=== PATIENT | female | born 1980 | race Caucasian/White ===

== ENCOUNTER 2016-03-26 18:58 | Emergency (ER) | payer OTHER ==
[~2016-03-26] VITALS: Ht 180.3 cm; Wt 101.5 kg
[~2016-03-26 18:58] MED LIST: CALC500C70 PO; CLC150 PO; DIAZ-165 PO; EFAV600T PO; LRT5 PO; PROM12.57 PO; [UNRECOGNIZED DRUG - OTHER] PO
[2016-03-26 19:03] VITALS: TEMP 36.4
[2016-03-26] MEDS ORDERED: PRENTAB26 PO (19:24)
[2016-03-26] MEDS ORDERED: LBT100 PO (19:24)
[2016-03-26] MEDS ORDERED: CHOL1000 PO (19:24)
--- NOTE | 2016-03-26 19:30 | EMERGENCY ROOM VISIT NOTE ---
History Report prepared by Twin: Balbir Rousseau Under the Supervision of: Dr. Gideon Moffett D.O. First contact with patient: 19:08 Chief Complaint: PELVIC PAIN Stated Complaint: ABD PAIN,BLEEDING History of Present Illness The patient is a 35 year old female who presents to the Emergency Room with complaints of worsening pelvic pain beginning several hours prior to arrival. She currently rates her discomfort as a 10/10 in severity. The patient associates vaginal bleeding, abdominal cramping, and nausea with today's symptoms. She states she took Cytotec on , four days ago, to induce a miscarriage due to the fetus not growing. She notes she began cramping and bleeding with clots for nine hours on . The patient states the following two days over the weekend was similar to a normal period. She notes this morning she woke up with cramping and took Motrin. The patient states she is currently passing clots of size of her fist every fifteen minutes. She notes this was her first , and her blood type is O+. Pt denies LOC, headache , fevers, chills, diaphoresis, visual changes, neck pain, chest pain, breathing difficulties, vomiting, back pain, melena, hematochezia, urinary symptoms, numbness, weakness, lymphadenopathy, rash, or other complaints. 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 Review of Systems See HPI for pertinent positives and negatives. A total of ten systems were reviewed and were otherwise negative. Past Medical & Surgical Medical Problems: (1) Miscarriage Family History Patient reports no known family medical history. Social History Smoking Status: Never Smoker Alcohol Use: none Marital Status: Occupation Status: employed Current/Historical Medications Scheduled Cholecalciferol (Vitamin D3), 1,000 INTER.UNIT PO DAILY Labetalol HCl (Labetalol HCl), 100 MG PO BID Multivit/Min/Iron/Fol Ac/Pren ( Vitamin), 1 TAB PO DAILY Allergies Coded Allergies: Shellfish (Unverified Allergy, Mild, RASH, 03/26/16) Sulfa Drugs (Verified Allergy, Mild, 03/26/16) Physical Exam Vital Signs Date Time Temp Pulse Resp B/P Pulse Ox O2 Delivery O2 Flow Rate FiO2 03/26/16 21:27 70 18 117/75 100 Room Air 03/26/16 20:09 72 03/26/16 19:54 100 Room Air 03/26/16 19:03 36.4 116 18 166/97 99 Room Air Physical Exam GENERAL: Awake, alert, uncomfortable-appearing. HENT: Normocephalic, atraumatic. Oropharynx unremarkable. EYES: Normal conjunctiva. Sclera non-icteric. NECK: Supple. No nuchal rigidity. FROM. No JVD. RESPIRATORY: Clear to auscultation. CARDIAC: Regular rate, normal rhythm. Extremities warm and well perfused. Pulses equal. ABDOMEN: Soft, non-distended. No tenderness to palpation. No rebound or guarding. No masses. RECTAL: Deferred. MUSCULOSKELETAL: Chest examination reveals no tenderness. The back is symmetrical on inspection without obvious abnormality. There is no CVA tenderness to palpation. No joint edema. LOWER EXTREMITIES: Calves are equal size bilaterally and non-tender. No edema. No discoloration. NEURO: Normal sensorium. No sensory or motor deficits noted. SKIN: No rash or jaundice noted. 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 19 mm thickness endometrium. No intrauterine gestational sac. The endometrial stripe measured 19 mm. The right ovary measured 3.4 cm maximum dimension. Normal vascular flow. 1.3 cm corpus luteum cyst. The left ovary measured not well seen. There is no ultrasonographic evidence of ovarian torsion. It should be noted that ovarian torsion can be present with normal Doppler ultrasonographic findings. There was no evidence of pathologic free pelvic fluid. IMPRESSION: 1. Prominent endometrium at 19 mm. 2. No evidence for an intrauterine gestational sac. 3. Small right ovarian cyst Electronically signed by: Rasheed Jackson M.D. 03/26/2016 9:05 PM Laboratory Results 03/26/16 19:44 Red Blood Count 3.86, Mean Corpuscular Volume 85.2, Mean Corpuscular Hemoglobin 30.1, Mean Corpuscular Hemoglobin Concent 35.3, Mean Platelet Volume 11.0, Neutrophils (%) (Auto) 67.2, Lymphocytes (%) (Auto) 22.4, Monocytes (%) (Auto) 8.3, Eosinophils (%) (Auto) 1.7, Basophils (%) (Auto) 0.2, Neutrophils # (Auto) 4.06, Lymphocytes # (Auto) 1.35, Monocytes # (Auto) 0.50, Eosinophils # (Auto) 0.10, Basophils # (Auto) 0.01 03/26/16 19:44 Test 03/26/16 19:44 White Blood Count 6.03 K/uL (4.8-10.8) Red Blood Count 3.86 M/uL (4.2-5.4) Hemoglobin 11.6 g/dL (12.0-16.0) Hematocrit 32.9 % (37-47) Mean Corpuscular Volume 85.2 fL (80-100) Mean Corpuscular Hemoglobin 30.1 pg (25-34) Mean Corpuscular Hemoglobin Concent 35.3 g/dl (32-36) Platelet Count 165 K/uL (130-400) Mean Platelet Volume 11.0 fL (7.4-10.4) Neutrophils (%) (Auto) 67.2 % Lymphocytes (%) (Auto) 22.4 % Monocytes (%) (Auto) 8.3 % Eosinophils (%) (Auto) 1.7 % Basophils (%) (Auto) 0.2 % Neutrophils # (Auto) 4.06 K/uL (1.4-6.5) Lymphocytes # (Auto) 1.35 K/uL (1.2-3.4) Monocytes # (Auto) 0.50 K/uL (0.11-0.59) Eosinophils # (Auto) 0.10 K/uL (0-0.5) Basophils # (Auto) 0.01 K/uL (0-0.2) RDW Standard Deviation 39.7 fL (36.4-46.3) RDW Coefficient of Variation 12.8 % (11.5-14.5) Immature Granulocyte % (Auto) 0.2 % Immature Granulocyte # (Auto) 0.01 K/uL (0.00-0.02) Prothrombin Time 10.2 SECONDS (9.0-12.0) Prothromb Time International Ratio 1.0 (0.9-1.1) Activated Partial Thromboplast Time 27.9 SECONDS (21.0-31.0) Partial Thromboplastin Ratio 1.1 Anion Gap 8.0 mmol/L (3-11) Est Creatinine Clear Calc Drug Dose 137.8 ml/min Estimated GFR () 120.8 Estimated GFR (Non- 104.2 BUN/Creatinine Ratio 23.7 (10-20) Calcium Level 8.9 mg/dl (8.5-10.1) Total Bilirubin 0.2 mg/dl (0.2-1) Aspartate Amino Transf (AST/SGOT) 15 U/L (15-37) Alanine Aminotransferase (ALT/SGPT) 23 U/L (12-78) Alkaline Phosphatase 68 U/L (45-117) Total Protein 7.0 gm/dl (6.4-8.2) Albumin 3.9 gm/dl (3.4-5.0) Globulin 3.1 gm/dl (2.5-4.0) Albumin/Globulin Ratio 1.3 (0.9-2) Human Chorionic Gonadotropin, Quant 5336 mIU/mL Laboratory results reviewed by me Medications Administered Medications (Trade) Dose Ordered Sig/Cristina Route Start Time Stop Time Status Last Admin Dose Admin Ondansetron HCl 4 mg 4 mg NOW STAT IV 03/26/16 19:32 03/26/16 19:35 DC 03/26/16 19:49 4 MG Sodium Chloride (Nss 1000ml) 1,000 ml @ 999 mls/hr Q1H1M STAT IV 03/26/16 19:32 03/26/16 20:32 DC 03/26/16 19:49 999 MLS/HR Morphine Sulfate (MoRPHine SULFATE INJ) 8 mg Q1H PRN IV 03/26/16 19:45 04/09/16 19:44 03/26/16 19:50 8 MG Ondansetron HCl (ZOFRAN ODT 4MG Home Pack) 1 homepack UD ONCE PO 03/26/16 21:45 03/26/16 21:46 DC 03/26/16 21:45 1 HOMEPACK Acetaminophen/ Hydrocodone Bitart ([place] 5/325mg Home Pack) 1 homepack UD ONCE PO 03/26/16 21:45 03/26/16 21:46 DC 03/26/16 21:45 1 HOMEPACK ED Course 191: The patient was evaluated in room B7. A complete history and physical exam was performed. 1931: Ordered Sodium Chloride 1,000 ml @ 999 mls/hr IV, Zofran Inj 4 mg IV. 1944: Ordered Morphine Sulfate 8 mg IV. 2144: Ordered Acetaminophen/Hydrocodone Bitart 1 homepack PO, Ondansetron HCl 1 homepack PO. 2149: Reevaluated the patient at this time, and she is pain free and very comfortable. Discussed results and discharge instructions: She verbalized understanding and agreement. The patient is ready for discharge. Medical Decision Differential diagnosis: Etiologies such as ectopic , dysfunction uterine bleeding, bleeding dyscrasia, trauma, infection, as well as others were entertained. 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 The day following Cytotec she experienced cramping and bleeding she has had mild bleeding ever since. Today however she had severe abdominal pain and passing multiple clots in the increased bleeding. Just prior to my entry into the room she states that she passed a blood clot was probably some tissue. Her pain is very severe suprapubically. On exam she had severe tenderness suprapubically. Suprapubic massage has decreased pain. Labs fluid and ultrasound were ordered. Ultrasound was negative for retained tissue. Labs were stable. Hemoglobin 11,000. On reevaluation she was pain-free very comfortable and happy feels like she is doing much better and would like to go home. Under my care she remained comfortable and happy. The patient's presentation and history is c/w the impression provided. A partial list of DDx that has been considered is listed above. By the evaluation outlined above other emergent etiologies such as those listed in the differential, as well as others, were deemed relatively unlikely. The patient has been informed about today's findings. All questions were answered to satisfaction and understanding. They are pleased with the care provided. Patient education and return instructions were discussed as per my usual and the patient was discharged in stable condition as agreed upon by the patient. The patient was referred for close follow-up and informed that they will need to call to schedule appointment during the next business hours. The chart was completed utilizing a [employer] and [employer] Speech voice recognition software. Utilizing these services results in errors at time as they are imperfect. Grammatical errors, random word insertions, pronoun errors, and incomplete sentences are an occasional consequence of this system due to software limitations, ambient noise, and hardware issues. Any formal questions or concerns about the content, text, or information contained within the body of this dictation should be directly addressed to the physician for clarification. Impression Primary Impression: Vagina bleeding Additional Impressions: Miscarriage, Hemorrhage affecting in first trimester Scribe Attestation The scribe's documentation has been prepared under my direction and personally reviewed by me in its entirety. I confirm that the note above accurately reflects all work, treatment, procedures, and medical decision making performed by me. Departure Information Dispostion Home / Self-Care Referrals Humberto Chao MD (PCP) Forms HOME CARE DOCUMENTATION FORM, IMPORTANT VISIT INFORMATION, WORK / SCHOOL INSTRUCTIONS Patient Instructions A Signature Page, ED Miscarriage Completed Additional Instructions Today's Beta hCG was 5336 Follow-up with your car and yard supervisor tomorrow. Return to the emergency department if needed for severe pain or continued bleeding. Treatment plenty of fluid intake and multivitamin with iron as daily.
[2016-03-26] MEDS ORDERED: SODIUM CHLORIDE 0.9% 1000ML 1,000 ML IV STA (19:32)
[2016-03-26] MEDS ORDERED: ONDANSETRON INJ 2 MG/ML 2 ML VIAL IV STA (19:32)
[2016-03-26] MEDS ORDERED: MoRPHine SULFATE 10 MG/ML CARP/VIAL IV PRN (19:45)
[2016-03-26 19:54] VITALS: O2SAT 100; Ht 180.3 cm; Wt 101.5 kg
[2016-03-26 19:54] LABS: BASO % 0.2 %; BASO ABS # 0.01 K/uL (0-0.2); COMPLETE YES; EOS % 1.7 %; HEMATOCRIT 32.9 % (37-47); IG% 0.2 %; LYMPH % 22.4 %; LYMPH ABS # 1.35 K/uL (1.2-3.4); MEAN CELL VOLUME 85.2 fL (80-100); MEAN CORPUSCULAR HEMOGLOBIN 30.1 pg (25-34); MEAN CORPUSCULAR HGB CONC 35.3 g/dl (32-36); MONO % 8.3 %; NEUT % 67.2 %; PLATELET COUNT 165 K/uL (130-400); RED BLOOD COUNT 3.86 M/uL (4.2-5.4); WHITE BLOOD COUNT 6.03 K/uL (4.8-10.8)
[2016-03-26 20:04] LABS: PARTIAL THROMBOPLASTIN RATIO 1.1; PROTHROMBIN TIME (PATIENT) 10.2 SECONDS (9.0-12.0)
[2016-03-26 20:14] LABS: BUN/CREATININE RATIO 23.7 (10-20); CALCIUM 8.9 mg/dl (8.5-10.1); CREATININE 0.74 mg/dl (0.60-1.20); POTASSIUM 3.6 mmol/L (3.5-5.1)
[2016-03-26 20:17] LABS: ALB/GLOB RATIO 1.3 (0.9-2)
--- NOTE | 2016-03-26 21:07 | DIAGNOSTIC IMAGING REPORT ---
EXAMINATION: PELVIC ULTRASOUND CLINICAL HISTORY: EVALUATE OB-CARVER HAND/VAGINAL BLEEDING BLEEDING COMPARISON STUDY: None FINDINGS: The uterus measured 9 cm maximum dimension. 19 mm thickness endometrium. No intrauterine gestational sac. The endometrial stripe measured 19 mm. The right ovary measured 3.4 cm maximum dimension. Normal vascular flow. 1.3 cm corpus luteum cyst. The left ovary measured not well seen. There is no ultrasonographic evidence of ovarian torsion. It should be noted that ovarian torsion can be present with normal Doppler ultrasonographic findings. There was no evidence of pathologic free pelvic fluid. IMPRESSION: 1. Prominent endometrium at 19 mm. 2. No evidence for an intrauterine gestational sac. 3. Small right ovarian cyst Electronically signed by: Rasheed Jackson M.D. 03/26/2016 9:05 PM
[2016-03-26 21:27] VITALS: BP 117/75; PULSE 70; O2SAT 100
[2016-03-26] MEDS ORDERED: NORCO 5/325MG HOME PACK PO ONE (21:45)
[2016-03-26] MEDS ORDERED: ONDANSETRON HOME PACK 4MG OD TAB PO ONE (21:45)
== END 2016-03-26 21:58 | disposition home or self-care (01) ==
LOC: C.EDB 18:59
DX: O26.851 Spotting complicating pregnancy, first trimester (principal); O26.891 Other specified pregnancy related conditions, first trimester; N93.9 Abnormal uterine and vaginal bleeding, unspecified; O03.9 Complete or unspecified spontaneous abortion without complication; O98.711 Human immunodeficiency virus [HIV] disease complicating pregnancy, first trimester; Z21 Asymptomatic human immunodeficiency virus [HIV] infection status; Z3A.00 Weeks of gestation of pregnancy not specified

== ENCOUNTER → 2016-04-02 | Outpatient (CLI) | payer OTHER ==
[~2016-04-02] MED LIST changes: -CALC500C70 PO; +CHOL1000 PO; -CLC150 PO; -DIAZ-165 PO; -EFAV600T PO; +LBT100 PO; -LRT5 PO; +PRENTAB26 PO; -PROM12.57 PO; -[UNRECOGNIZED DRUG - OTHER] PO
== END | disposition home or self-care (01) ==
LOC: C.LAB 11:20
PROVIDERS: ATTEND Obstetrics & Gynecology
DX: O02.1 Missed abortion (principal)

== ENCOUNTER → 2016-09-07 | Outpatient (CLI) | payer OTHER | END | disposition home or self-care (01) | LOC: C.LAB 12:38 | PROVIDERS: ATTEND Internal Medicine | DX: R63.5 Abnormal weight gain (principal); I10 Essential (primary) hypertension ==

== ENCOUNTER → 2017-04-04 | Outpatient (CLI) | payer OTHER | END | disposition home or self-care (01) | LOC: C.LAB1850 15:43 | PROVIDERS: ATTEND Obstetrics & Gynecology | DX: O09.512 Supervision of elderly primigravida, second trimester (principal); Z3A.00 Weeks of gestation of pregnancy not specified ==

== ENCOUNTER → 2017-04-18 | Outpatient (CLI) | payer OTHER ==
[2017-04-18 16:35] LABS: BASO % 0.2 %; BASO ABS # 0.01 K/uL (0-0.2); EOS % 1.5 %; EOS ABS # 0.09 K/uL (0-0.5); HEMATOCRIT 33.4 % (37-47); HEMOGLOBIN 11.3 g/dL (12.0-16.0); IG# 0.03 K/uL (0.00-0.02); LYMPH % 23.8 %; LYMPH ABS # 1.39 K/uL (1.2-3.4); MEAN CELL VOLUME 87.2 fL (80-100); MEAN CORPUSCULAR HEMOGLOBIN 29.5 pg (25-34); MEAN CORPUSCULAR HGB CONC 33.8 g/dl (32-36); MEAN PLATELET VOLUME 11.3 fL (7.4-10.4); MONO % 10.1 %; MONO ABS # 0.59 K/uL (0.11-0.59); NEUT % 63.9 %; NEUT ABS # 3.73 K/uL (1.4-6.5); PLATELET COUNT 184 K/uL (130-400); RED CELL DISTRIBUTION WIDTH CV 13.7 % (11.5-14.5); RED CELL DISTRIBUTION WIDTH SD 43.7 fL (36.4-46.3); WHITE BLOOD COUNT 5.84 K/uL (4.8-10.8)
[2017-04-18 17:03] LABS: ALBUMIN 3.3 gm/dl (3.4-5.0); ALT/SGPT 40 U/L (12-78); BLOOD UREA NITROGEN 12 mg/dl (7-18); CALCIUM 9.1 mg/dl (8.5-10.1); CARBON DIOXIDE 26 mmol/L (21-32); CREATININE 0.54 mg/dl (0.60-1.20); GLUCOSE 82 mg/dl (70-99); POTASSIUM 3.7 mmol/L (3.5-5.1); SODIUM 136 mmol/L (136-145)
[2017-04-18 17:14] LABS: ALKALINE PHOSPHATASE 79 U/L (45-117); AST/SGOT 23 U/L (15-37)
== END | disposition home or self-care (01) ==
LOC: C.LAB 15:36
PROVIDERS: ATTEND Internal Medicine
DX: H53.8 Other visual disturbances (principal); I10 Essential (primary) hypertension

== ENCOUNTER → 2017-04-19 | Outpatient (CLI) | payer OTHER ==
--- NOTE | 2017-04-19 15:59 | DIAGNOSTIC IMAGING REPORT ---
ULTRASOUND OF THE THYROID GLAND CLINICAL HISTORY: Hypothyroidism. COMPARISON STUDY: No priors. TECHNIQUE: Real-time, grayscale, and color flow sonography of the thyroid gland is performed utilizing a high-frequency linear transducer. Images are reviewed in the transverse and longitudinal planes. FINDINGS: Right lobe: The right lobe of the thyroid gland is normal in size and heterogeneous in echotexture, measuring 5.8 x 1.5 x 1.8 cm. The right lobe is hyperemic on color imaging. Left lobe: The left lobe of the thyroid gland is normal in size and homogeneous in echotexture, measuring 4.6 x 1.5 x 1.5 cm. The left lobe is hyperemic on color imaging. Isthmus: The thyroid isthmus is normal in appearance and measures 0.3 cm in AP diameter. IMPRESSION: 1. The thyroid gland is normal in size and heterogeneous in echotexture. The thyroid gland is hyperemic on color imaging, and the appearance suggests thyroiditis. Correlation with clinical findings and serum thyroid function studies will be required. 2. No discrete thyroid lesion is seen. Electronically signed by: Stuart Navarro M.D. 04/19/2017 3:58 PM Dictated Date/Time: 04/19/2017 3:57 PM
[2017-04-22 12:57] LABS: MICROSOMAL AB 578 IU/ML (<9)
== END | disposition home or self-care (01) ==
LOC: C.LAB 15:04
PROVIDERS: ATTEND Internal Medicine
DX: E03.9 Hypothyroidism, unspecified (principal); E04.9 Nontoxic goiter, unspecified

== ENCOUNTER → 2017-05-17 | Outpatient (CLI) | payer OTHER ==
[2017-05-17 15:37] LABS: BASO % 0.2 %; BASO ABS # 0.01 K/uL (0-0.2); EOS % 0.9 %; EOS ABS # 0.05 K/uL (0-0.5); HEMATOCRIT 32.5 % (37-47); HEMOGLOBIN 11.2 g/dL (12.0-16.0); IG# 0.01 K/uL (0.00-0.02); LYMPH % 24.1 %; LYMPH ABS # 1.32 K/uL (1.2-3.4); MEAN CELL VOLUME 87.6 fL (80-100); MEAN CORPUSCULAR HEMOGLOBIN 30.2 pg (25-34); MEAN CORPUSCULAR HGB CONC 34.5 g/dl (32-36); MONO ABS # 0.49 K/uL (0.11-0.59); NEUT % 65.6 %; NEUT ABS # 3.59 K/uL (1.4-6.5); PLATELET COUNT 191 K/uL (130-400); RED CELL DISTRIBUTION WIDTH CV 13.9 % (11.5-14.5); RED CELL DISTRIBUTION WIDTH SD 44.7 fL (36.4-46.3); WHITE BLOOD COUNT 5.47 K/uL (4.8-10.8)
== END | disposition home or self-care (01) ==
LOC: C.LAB 14:31
PROVIDERS: ATTEND Internal Medicine Endocrinology, Diabetes & Metabolism
DX: D64.9 Anemia, unspecified (principal); E03.9 Hypothyroidism, unspecified; E04.9 Nontoxic goiter, unspecified; O99.282 Endocrine, nutritional and metabolic diseases complicating pregnancy, second trimester

== ENCOUNTER → 2017-06-17 | Outpatient (CLI) | payer OTHER | END | disposition home or self-care (01) | LOC: C.LAB 11:28 | PROVIDERS: ATTEND Internal Medicine Endocrinology, Diabetes & Metabolism | DX: O10.019 Pre-existing essential hypertension complicating pregnancy, unspecified trimester (principal); E03.9 Hypothyroidism, unspecified ==

== ENCOUNTER → 2017-06-24 | Outpatient (CLI) | payer OTHER ==
[2017-06-24 17:38] LABS: HEMATOCRIT 31.9 % (37-47); HEMOGLOBIN 10.9 g/dL (12.0-16.0)
== END | disposition home or self-care (01) ==
LOC: C.LAB1850 16:38
PROVIDERS: ATTEND Obstetrics & Gynecology
DX: O09.513 Supervision of elderly primigravida, third trimester (principal)

== ENCOUNTER → 2017-07-15 | Outpatient (CLI) | payer OTHER | END | disposition home or self-care (01) | LOC: C.LAB 11:54 | PROVIDERS: ATTEND Internal Medicine Endocrinology, Diabetes & Metabolism | DX: E03.9 Hypothyroidism, unspecified (principal) ==

== ENCOUNTER → 2017-10-24 | Outpatient (CLI) | payer OTHER ==
[~2017-10-24] MED LIST changes: +LEVO150T PO
== END | disposition home or self-care (01) ==
LOC: C.PAPS 15:47
PROVIDERS: ATTEND Obstetrics & Gynecology
DX: Z12.4 Encounter for screening for malignant neoplasm of cervix (principal)

== ENCOUNTER → 2017-11-08 | Outpatient (CLI) | payer OTHER | END | disposition home or self-care (01) | LOC: C.LAB 11:39 | PROVIDERS: ATTEND Internal Medicine Endocrinology, Diabetes & Metabolism | DX: E06.3 Autoimmune thyroiditis (principal) ==

== ENCOUNTER 2019-08-04 10:22 | Inpatient (IN) ==
--- NOTE | 2019-08-04 10:44 | History & Physical Report ---
Date of Service August 04, 2019 Assessment & Plan (1) Elective induction of labor planned: Jenn is a 39 yo here for planned induction of labor at 38w according to chronic hypertension protocol. - admit to L&D - begin Pitocin and IV fluids - consider AROM as labor progresses - GBS positive: will start Penicillin 6 million units, IV, followed by 3 million units Q4h until delivery - anesthesia consult placed for epidural - anticipate vaginal delivery (2) Hypothyroid: - most recent TSH 0.6 from 07/01 - continue Synthroid 137 mcg daily, before breakfast (3) Hypertension: - BP currently at 138/86; continue to monitor - continue labetalol 100mg BID - will stop daily baby aspirin today History of Present Illness Primary Care Provider: Humberto Chao MD Jenn is a 39yo at 38w 0d ( dated via LPM), here for planned IOL according to chronic hypertension protocol. She had a rizzo balloon catheter placed last night, which fell out at 7am this morning. NST last night was reactive. In addition to chronic hypertension (managed with labetalol 100mg, BID and aspirin, 81mg, daily since 12 weeks gestation), this has been complicated by AMA ( echo 04/21/19 read as normal), hypothyroidism (on replacement with levothyroxine 137 mcg daily), anemia (on oral iron supplement), and maternal obesity. Only other medication is PNV. Ultrasound done on 07/29 showed a normal DVP of 4cm. Jenn has been attending OB appointments. She is not feeling any contractions. She is feeling movement. She had some vaginal spotting after rizzo was placed, no additional bleeding. No fluid loss. Labs Blood type: O+ Antibody Screen: neg H.5 Hct: 34.3 Plt: 189 Rubella: immune VDRL/RPR: non-reactive Gonorrhea: neg Chlamydia: neg GBS: + HIV:neg HbsAq: neg Glucose Tolerance x2: normal Allergies Allergy/AdvReac Type Severity Reaction Status Date / Time shellfish derived Allergy Mild RASH Verified 08/04/19 10:56 Sulfa (Sulfonamide Allergy Unknown Rash Verified 08/04/19 10:56 Antibiotics) Home Medications Home Medications Medication Instructions Recorded Confirmed Type aspirin [Aspirin Childrens] 81 mg PO DAILY 08/04/19 08/04/19 History ferrous sulfate [iron] 325 mg PO DAILY 08/04/19 08/04/19 History labetalol 100 mg PO BID 08/04/19 08/04/19 History levothyroxine 137 mcg PO DAILY 08/04/19 08/04/19 History vit-iron fum-folic ac 1 tab PO DAILY 08/04/19 08/04/19 History [ Vitamin] Patient History Medical History History of breast lump History of varicella vaccination Surgical History S/P wisdom tooth extraction Family History Mother Hypertension Sister Hypertension Type 1 diabetes mellitus Brother Family history of fraternal twins Denies family history of Ovarian cancer Breast cancer Colorectal cancer Social History Preferred Language: Sami Communication Ability: Effective Beliefs That Will Affect Care: None marital status: marital status details: Richie Gibbons (40) [phone] Current Living Situation: Family current occupational status: employed 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 [employer] Other Information That Helps Us Care for You: No Feels Safe at Home: Yes Safety Concerns: Feels Safe At This Time Smoking Status: Former smoker Hx Alcohol Use: No Hx Substance Use: No Review of Systems no fever, no chills and no sweats no worsening vision no cough and no dyspnea no chest pain, no palpitations and no calf pain no nausea, no vomiting, no constipation and no diarrhea/loose stools no dysuria and no urinary frequency Physical Exam Constitutional: WD/WN, vitals as above Eyes: + anicteric sclerae Neck: normal visual inspection Respiratory: normal respiratory effort, lungs clear to auscultation does not use accessory muscles Auscultation: no crackles, no rales, no wheezes and no pleural rub Cardiovascular: Rate/Rhythm: regular rate and regular rhythm Heart Sounds: normal S1 and normal S2; no gallop, no murmur and no cardiac rub Gastrointestinal (Abdomen): Gravid. Uterus at term; + heart tones; vertex position. EFW: 7-8 lbs Neurologic: awake; no focal motor deficits Psychiatric: A+Ox3, euthymic affect Genitourinary: OB Exam Monitor Tracing: + external FHT monitor used Cervical Exam: 3.5 cm/ 50% effacement/ -2 station, moderate and posterior Results & Data Vital Signs (Past 12 Hours) Vital Signs Pulse BP 08/04/19 10:27 80 138/86 Monitoring External Monitor Baseline HR: 165 bpm Variability: moderate Accelerations: 2 in 20 min Decelerations: none Category: I Tocodynamometer Contractions: occurring irregularly on monitor; strip difficult to interpret due to artifact/movement Supervising Physician Co-Signing Physician Notes Resident Physician Supervision Note: I was present with Dr. Albrecht during the history and exam. I discussed the case wi th the resident and agree with the findings and plan as documented in the note. Any exceptions or clarifications are listed here: 39yowf having induction for well controlled chtn. Rizzo fell out this am. favorable cervix. Plan pitocin induction, epidural, arom and vaginal delivery. Plan to continue all meds. Fetus category one. Documented By: Yadira Liu MD, FACOG Resident Activity Tracking Resident Involvement: Resident Care Provided Care Provided: OB Delivery
[2019-08-04] MEDS ORDERED: OXYTOCIN 30 UNITS/500 ML BAG IV PRN ×2 (10:49→10:58)
[2019-08-04] MEDS: LACTATED RINGER'S 1,000 ML IV PRN ×2 (11:06→19:10)
[2019-08-04 11:11] LABS: Hematocrit (blood only) 34.3 % (37-47); Hemoglobin 11.5 g/dL (12.0-16.0); Mean Corpuscular Hemoglobin 29.3 pg (25-34); Mean Corpuscular Volume 87.5 fL (80-100); Mean Platelet Volume 11.8 fL (7.4-10.4); Platelet Count 189 K/uL (130-400); RDW Coefficient of Variation 14.1 % (11.5-14.5); RDW Standard Deviation 44.5 fL (36.4-46.3); Red Blood Count 3.92 M/uL (4.2-5.4); White Blood Count 6.46 K/uL (4.8-10.8)
[2019-08-04] MEDS ORDERED: PENICILLIN G POTASSIUM 6 MU in DEXTROSE 5% 250 ML IV ONE (11:15)
[2019-08-04 11:21] LABS: Mean Corpuscular Hgb Conc 33.5 g/dL (32-36)
[2019-08-04] MEDS ORDERED: CALCIUM CARBONATE 500 MG CHEWABLE TAB PO PRN (11:51)
[2019-08-04] MEDS ORDERED: FAMOTIDINE 20 MG TAB PO PRN (11:51)
[2019-08-04] MEDS: PENICILLIN G POTASSIUM 3 MU in DEXTROSE 5% 100 ML IV PRN ×3 (15:47→23:31)
[2019-08-04] MEDS ORDERED: BUPIVACAINE 0.25% 30 ML VIAL ONE (16:20)
[2019-08-04] MEDS ORDERED: ePHEDrine sulfate 50 MG/ML AMP ONE (16:20)
[2019-08-04] MEDS ORDERED: fentaNYL 2MCG/ML ROPIV 1.25MG/ML 100 ML BAG EPI ONE (16:21)
[2019-08-04] MEDS ORDERED: fentaNYL citrate 100 MCG/2 ML VIAL ONE (16:21)
[2019-08-04] MEDS ORDERED: NALBUPHINE HCL INJ 10 MG/ML AMP IV PRN (16:32)
[2019-08-04] MEDS ORDERED: ePHEDrine sulfate 50 MG/ML AMP IV PRN (16:32)
[2019-08-04] MEDS ORDERED: fentaNYL 2MCG/ML ROPIV 1.25MG/ML 100 ML BAG EPI PRN (16:32)
[2019-08-04] MEDS ORDERED: ONDANSETRON INJ 2 MG/ML 2 ML VIAL IV PRN (16:32)
[2019-08-04] MEDS ORDERED: NALOXONE HCL 0.4 MG/1 ML VIAL/CARP IV PRN (16:32)
[2019-08-04] MEDS ORDERED: DiphenhydrAMINE HCL 50 MG/ML VIAL IV PRN (16:32)
[2019-08-04] MEDS ORDERED: NALOXONE HCL 1 MG in SODIUM CHLORIDE 0.9% 1000ML 1,000 ML IV PRN (16:32)
--- NOTE | 2019-08-04 16:36 | Anesthesiology Consultation ---
Date of Service August 04, 2019 Assessment & Plan (1) Encounter for pre-operative examination: Chart Review Chart Review: Patient NOT seen in Pre Admission Testing and Acceptable Risk for Labor Epidural Consults Requested none History Height/Weight Height: 5 ft 11 in Weight: 130.181 kg Allergies Allergy/AdvReac Type Severity Reaction Status Date / Time shellfish derived Allergy Mild RASH Verified 08/04/19 10:56 Sulfa (Sulfonamide Allergy Unknown Rash Verified 08/04/19 10:56 Antibiotics) Medications Home Medications Medication Instructions Recorded Confirmed Last Taken aspirin [Aspirin Childrens] 81 mg PO DAILY 08/04/19 08/04/19 08/04/19 07:30 ferrous sulfate [iron] 325 mg PO DAILY 08/04/19 08/04/19 08/03/19 20:00 labetalol 100 mg PO BID 08/04/19 08/04/19 08/04/19 07:30 levothyroxine 137 mcg PO DAILY 08/04/19 08/04/19 08/04/19 07:30 vit-iron fum-folic ac 1 tab PO DAILY 08/04/19 08/04/19 08/04/19 07:30 [ Vitamin] Active Medications Generic Name Dose Route Start Last Admin Trade Name Freq PRN Reason Stop Dose Admin Famotidine 20 mg 08/04/19 11:51 08/04/19 13:33 Pepcid PO 09/03/19 11:50 20 mg BID PRN Administration Heartburn Lactated Ringer's 1,000 mls @ 125 mls/hr 08/04/19 10:49 08/04/19 16:15 Lr IV 08/06/19 10:48 999 mls/hr .Q8H PRN Infusion L&D Protocol Protocol Penicillin G Potassium 3 mu/ 106 mls @ 100 mls/hr 08/04/19 19:00 08/04/19 16:49 Dextrose IV 08/14/19 18:59 Infused Q4H PRN Titration Give until delivery Oxytocin 30 units in 500 mls @ 18 mls/hr 08/04/19 10:58 08/04/19 15:55 Pitocin IV 08/06/19 10:57 1.08 units/hr .Q24H PRN 18 mls/hr Labor Induction/Augmentation Titration Protocol 1.08 UNITS/HR Past Medical History Medical History History of breast lump History of varicella vaccination Exercise / Class Metabolic Activity II 4-5 Yardwork/Stairs/Walk up hill Past Family History Family History Mother Hypertension Sister Hypertension Type 1 diabetes mellitus Brother Family history of fraternal twins Denies family history of Ovarian cancer Breast cancer Colorectal cancer Past Surgical History Surgical History S/P wisdom tooth extraction Past Anesthesia History No Hx of Anesthesia Complications and No Family Hx of Anesthesia Complications History of PONV No Hx of PONV and No Hx of Motion Sickness Social History Smoking Status: Former smoker Do You Dip or Chew Tobacco: No Hx Alcohol Use: No Hx Substance Use: No substance use type: does not use Physical Exam Vital Signs Last Vital Signs Temp 36.5 C 08/04/19 15:49 Pulse 65 08/04/19 15:49 Resp 20 08/04/19 15:49 BP 139/90 08/04/19 15:49 Testing Laboratory Results 08/04/19 11:01
--- NOTE | 2019-08-04 17:54 | Labor Progress Brief Note ---
Date of Service August 04, 2019 Subjective comfortable with epidural Assessment & Plan (1) Chronic hypertension affecting : pressures good. continue oral labetolol (2) Elective induction of labor planned: fetus category one. continue current management. Physical Exam Constitutional: WD/WN, vitals as above Psychiatric: A+Ox3, euthymic affect Genitourinary: cx--4/75/-2 arom--clear toco--q2-4min, pit at 18 efm--125 with mod variability, accels to 160s, no decels Results & Data Vital Signs (Past 12 Hours) Vital Signs Temp Pulse Resp BP Pulse Ox 08/04/19 17:49 69 100 08/04/19 17:46 61 136/77 08/04/19 17:44 61 97 08/04/19 17:39 62 97 08/04/19 17:34 62 97 08/04/19 17:29 64 97 08/04/19 17:27 61 136/77 08/04/19 17:24 66 99 08/04/19 17:23 63 93 08/04/19 17:22 59 L 152/73 H 08/04/19 17:19 64 99 08/04/19 17:17 61 127/73 08/04/19 17:14 63 99 08/04/19 17:12 65 149/87 H 08/04/19 17:09 68 99 08/04/19 17:06 61 141/90 H 08/04/19 17:04 68 151/93 H 98 08/04/19 17:02 63 160/98 H 08/04/19 17:00 67 161/96 H 08/04/19 16:59 65 99 08/04/19 16:58 68 163/92 H 08/04/19 16:56 62 155/82 H 08/04/19 16:54 66 99 08/04/19 16:53 66 163/86 H 08/04/19 16:49 66 100 08/04/19 16:44 70 95 08/04/19 16:39 76 99 08/04/19 15:49 36.5 C 65 20 139/90 08/04/19 14:41 68 20 130/84 08/04/19 13:35 36.5 C 65 20 139/85 08/04/19 12:32 68 137/86 08/04/19 10:27 80 138/86 08/04/19 10:26 36.6 C 80 20 138/86 Coding Level of Care Code None Diagnoses Chronic hypertension affecting O10.919 Elective induction of labor planned
[2019-08-04] MEDS ORDERED: LABETALOL HCL 100 MG TAB PO SCH (21:00)
--- NOTE | 2019-08-04 21:01 | Labor Progress Brief Note ---
Date of Service August 04, 2019 Subjective comfortable Assessment & Plan (1) Elective induction of labor planned: continue pit for goal of >200mvus. fetus overall reassuring, category 2. anticipate . Physical Exam Constitutional: WD/WN, vitals as above Psychiatric: A+Ox3, euthymic affect Genitourinary: cx--5.5/75/-2 toco--q2-3min, pit at 20 efm--140s with mod variability, small accels, +scalp stim, variables with contractions iupc placed Results & Data Vital Signs (Past 12 Hours) Vital Signs Temp Pulse Resp BP Pulse Ox 08/04/19 20:54 66 98 08/04/19 20:49 61 98 08/04/19 20:46 67 130/75 08/04/19 20:44 70 98 08/04/19 20:39 64 98 08/04/19 20:34 65 97 08/04/19 20:31 61 127/70 08/04/19 20:29 66 99 08/04/19 20:24 63 100 08/04/19 20:19 66 99 08/04/19 20:17 65 125/78 08/04/19 20:14 66 99 08/04/19 20:09 75 98 08/04/19 20:04 73 99 08/04/19 20:01 66 135/87 08/04/19 19:59 70 100 08/04/19 19:54 70 99 08/04/19 19:49 80 99 08/04/19 19:46 67 133/88 08/04/19 19:44 74 98 08/04/19 19:39 65 98 08/04/19 19:34 75 98 08/04/19 19:32 66 89 L 08/04/19 19:31 65 146/87 H 08/04/19 19:29 69 99 08/04/19 19:24 67 98 08/04/19 19:19 70 98 08/04/19 19:17 63 142/90 H 08/04/19 19:14 69 98 08/04/19 19:09 36.6 C 68 18 98 08/04/19 19:04 67 98 08/04/19 19:01 77 137/86 08/04/19 18:59 68 97 08/04/19 18:54 68 99 08/04/19 18:49 88 99 05 18:46 67 149/86 H 08/04/19 18:44 87 95 05 18:39 66 96 05 18:34 66 97 05 18:30 69 135/83 05 18:29 70 98 05 18:24 73 97 05 18:19 64 98 08/04/19 18:16 63 133/90 08/04/19 18:14 61 97 05 18:09 64 99 05 18:04 61 98 05 18:01 62 139/85 08/04/19 17:59 64 99 08/04/19 17:54 67 98 08/04/19 17:49 69 100 08/04/19 17:46 61 136/77 08/04/19 17:44 61 97 08/04/19 17:39 62 97 08/04/19 17:34 62 97 08/04/19 17:29 64 97 08/04/19 17:27 61 136/77 08/04/19 17:24 66 99 08/04/19 17:23 63 93 08/04/19 17:22 59 L 152/73 H 08/04/19 17:19 64 99 08/04/19 17:17 61 127/73 08/04/19 17:14 63 99 08/04/19 17:12 65 149/87 H 08/04/19 17:09 68 99 08/04/19 17:06 61 141/90 H 08/04/19 17:04 68 151/93 H 98 08/04/19 17:02 63 160/98 H 08/04/19 17:00 67 161/96 H 08/04/19 16:59 65 99 08/04/19 16:58 68 163/92 H 08/04/19 16:56 62 155/82 H 08/04/19 16:54 66 99 05 16:53 66 163/86 H 08/04/19 16:49 66 100 08/04/19 16:44 70 95 08/04/19 16:39 76 99 08/04/19 15:49 36.5 C 65 20 139/90 08/04/19 14:41 68 20 130/84 05 13:35 36.5 C 65 20 139/85 08/04/19 12:32 68 137/86 08/04/19 10:27 80 138/86 08/04/19 10:26 36.6 C 80 20 138/86 Coding Level of Care Code None Diagnoses Elective induction of labor planned
--- NOTE | 2019-08-04 22:45 | Labor Progress Brief Note ---
Date of Service August 04, 2019 Subjective comfortable Assessment & Plan (1) Elective induction of labor planned: Continue pitocin for goal of >200MVUs. Fetus overall reassuring, category 2 with variables. Physical Exam Constitutional: WD/WN, vitals as above Psychiatric: A+Ox3, euthymic affect Genitourinary: cx--unchanged toco--q2-4min, pit at 26, MVUs not quite 200 at this point efm--130s with mod variability, small accels, variables with contractions Results & Data Vital Signs (Past 12 Hours) Vital Signs Temp Pulse Resp BP Pulse Ox 08/04/19 22:40 79 94 08/04/19 22:39 69 98 08/04/19 22:34 63 98 08/04/19 22:31 60 143/88 H 08/04/19 22:29 63 99 08/04/19 22:24 64 97 08/04/19 22:20 69 94 08/04/19 22:19 65 95 08/04/19 22:16 63 144/89 H 08/04/19 22:14 60 99 08/04/19 22:09 61 98 08/04/19 22:04 65 97 08/04/19 22:01 64 150/89 H 08/04/19 21:59 70 99 08/04/19 21:54 69 97 08/04/19 21:49 64 99 08/04/19 21:46 61 138/82 08/04/19 21:44 64 98 08/04/19 21:39 78 98 08/04/19 21:34 66 98 08/04/19 21:31 61 121/70 08/04/19 21:29 64 99 08/04/19 21:24 62 98 08/04/19 21:19 61 97 08/04/19 21:16 63 130/75 08/04/19 21:14 66 98 08/04/19 21:09 60 98 08/04/19 21:04 63 99 08/04/19 21:02 36.7 C 63 18 132/73 08/04/19 20:59 62 99 08/04/19 20:54 66 98 08/04/19 20:49 61 98 08/04/19 20:46 67 130/75 08/04/19 20:44 70 98 08/04/19 20:39 64 98 05 20:34 65 97 0520 20:31 61 127/70 0520 20:29 66 99 0520 20:24 63 100 0520 20:19 66 99 0520 20:17 65 125/78 0520 20:14 66 99 0520 20:09 75 98 05 20:04 73 99 05 20:01 66 135/87 08/04/19 19:59 70 100 05 19:54 70 99 08/04/19 19:49 80 99 05 19:46 67 133/88 08/04/19 19:44 74 98 08/04/19 19:39 65 98 08/04/19 19:34 75 98 08/04/19 19:32 66 89 L 08/04/19 19:31 65 146/87 H 08/04/19 19:29 69 99 08/04/19 19:24 67 98 08/04/19 19:19 70 98 08/04/19 19:17 63 142/90 H 08/04/19 19:14 69 98 08/04/19 19:09 36.6 C 68 18 98 08/04/19 19:04 67 98 08/04/19 19:01 77 137/86 08/04/19 18:59 68 97 05 18:54 68 99 08/04/19 18:49 88 99 08/04/19 18:46 67 149/86 H 08/04/19 18:44 87 95 08/04/19 18:39 66 96 08/04/19 18:34 66 97 05 18:30 69 135/83 05 18:29 70 98 05 18:24 73 97 05 18:19 64 98 05 18:16 63 133/90 08/04/19 18:14 61 97 05 18:09 64 99 05 18:04 61 98 05 18:01 62 139/85 0520 17:59 64 99 05 17:54 67 98 05 17:49 69 100 05 17:46 61 136/77 05/12/20 17:44 61 97 08/04/19 17:39 62 97 08/04/19 17:34 62 97 08/04/19 17:29 64 97 08/04/19 17:27 61 136/77 08/04/19 17:24 66 99 08/04/19 17:23 63 93 08/04/19 17:22 59 L 152/73 H 08/04/19 17:19 64 99 08/04/19 17:17 61 127/73 08/04/19 17:14 63 99 08/04/19 17:12 65 149/87 H 08/04/19 17:09 68 99 08/04/19 17:06 61 141/90 H 08/04/19 17:04 68 151/93 H 98 08/04/19 17:02 63 160/98 H 08/04/19 17:00 67 161/96 H 08/04/19 16:59 65 99 08/04/19 16:58 68 163/92 H 08/04/19 16:56 62 155/82 H 08/04/19 16:54 66 99 08/04/19 16:53 66 163/86 H 08/04/19 16:49 66 100 08/04/19 16:44 70 95 08/04/19 16:39 76 99 08/04/19 15:49 36.5 C 65 20 139/90 08/04/19 14:41 68 20 130/84 08/04/19 13:35 36.5 C 65 20 139/85 08/04/19 12:32 68 137/86 Coding Level of Care Code None Diagnoses Elective induction of labor planned
[2019-08-05] MEDS ORDERED: CARBOPROST TROMETHAMINE 250 MCG/ML AMPUL ONE (00:08)
[2019-08-05] MEDS ORDERED: IBUPROFEN 600 MG TAB PO PRN (00:18)
[2019-08-05] MEDS ORDERED: ACETAMINOPHEN 325 MG TAB PO PRN (00:18)
[2019-08-05] MEDS ORDERED: OXYCODONE/ACETAMINOPHEN 5mg/325mg TAB PO PRN (00:18)
--- NOTE | 2019-08-05 00:22 | Delivery Summary ---
Vaginal Delivery Summary Date of Service August 05, 2019 Vaginal Delivery Summary Pre-operative Diagnosis: at 38 weeks chronic hypertension Post-operative Diagnosis: same Procedure: rizzo bulb for cervical ripening pitocin induction epidural arom first degree laceration and repair EBL: 350cc Anesthesia: epidural Procedure: The patient pushed for three contractions to deliver a viable female in meme position. The nose and mouth were bulb suctioned on the perineum and the rest of the was then delivered without difficulty. The baby was vigorous. The nose and mouth were again bulb suctioned and the infant was placed in the maternal abdomen for drying and attention. Cord was clamped and cut at one minute of life. Cord blood and segment obtained. Placenta delivered spontaneous, intact with a three vessel cord. Cervix/sulci/rectum were intact. A first degree perineal laceration was repaired in the normal standard fashion. Hemostasis obtained with dilute pitocin and fundal massage. Apgars were 8/9. Mother and baby doing well at the end of the delivery.
[2019-08-05] MEDS ORDERED: DIPHTHERIA/TETANUS/PERTUSSIS 0.5 ML SYR/VIAL IM ONE (00:30)
[2019-08-05] MEDS ORDERED: OXYTOCIN 30 UNITS/500 ML BAG IV PRN (00:30)
[2019-08-05] MEDS ORDERED: HYDROCORTISONE ACETATE 25 MG SUPP PR PRN (00:30)
[2019-08-05] MEDS ORDERED: CARBOPROST TROMETHAMINE 250 MCG/ML AMPUL IM ONE (00:30)
[2019-08-05] MEDS ORDERED: BENZOCAINE 20% AER SPR 82.5 GM CAN EXT PRN (00:30)
[2019-08-05] MEDS ORDERED: SUPERCREAM 0.870% 15 GM JAR EXT PRN (00:30)
[2019-08-05] MEDS ORDERED: bisacodyL 10 MG SUPP PR PRN (00:30)
[2019-08-05] MEDS ORDERED: LEVOTHYROXINE SODIUM 137 MCG TABLET PO SCH ×2 (06:30→09:00)
--- NOTE | 2019-08-05 07:17 | Obstetrical Progress Note ---
Date of Service August 05, 2019 Assessment & Plan (1) Vaginal delivery: Routine care. Doing well. (2) Chronic hypertension affecting : Continue labetolol bid. Has had a couple of systolics in low 150s. No s/s pet. Day #:: 0 Subjective Ambulation: ambulating normally Voiding: no voiding problems Passing Gas:: No Diet Tolerance:: regular diet Lochia:: Small Feeding Type:: breast feeding Physical Exam Constitutional WD/WN, vitals as above Cardiovascular Extremities: + edema (trace); no calf tenderness Gastrointestinal (Abdomen) soft, nt, nd ff/nt below u Psychiatric A+Ox3, euthymic affect Results & Data Vital Signs (Past 12 Hours) Vital Signs Temp Pulse Pulse Resp BP BP Pulse Ox 08/05/19 03:00 36.7 C 76 16 135/87 97 08/05/19 02:24 18 08/05/19 01:56 69 140/76 08/05/19 01:55 18 08/05/19 01:31 68 146/90 H 08/05/19 01:25 18 08/05/19 01:16 63 148/88 H 08/05/19 01:10 18 08/05/19 01:01 72 135/83 08/05/19 00:55 18 08/05/19 00:46 69 150/75 H 08/05/19 00:40 18 08/05/19 00:31 74 154/79 H 08/05/19 00:25 18 08/05/19 00:23 71 152/77 H 08/05/19 00:16 85 184/81 H 08/05/19 00:14 79 100 08/05/19 00:09 76 100 08/05/19 00:04 71 99 08/05/19 00:01 92 H 198/91 H 08/04/19 23:59 83 98 08/04/19 23:54 109 H 98 08/04/19 23:49 87 100 08/04/19 23:46 61 151/73 H 08/04/19 23:44 62 98 08/04/19 23:39 65 96 08/04/19 23:34 63 97 08/04/19 23:31 62 126/73 08/04/19 23:29 66 96 08/04/19 23:26 71 91 05/12/20 23:24 63 97 08/04/19 23:19 62 99 08/04/19 23:16 65 129/75 08/04/19 23:14 69 99 08/04/19 23:09 67 100 08/04/19 23:05 36.6 C 18 08/04/19 23:04 75 97 08/04/19 23:01 36.6 C 66 18 113/70 08/04/19 22:59 65 99 08/04/19 22:54 65 98 08/04/19 22:49 66 98 08/04/19 22:46 65 137/83 08/04/19 22:44 64 98 08/04/19 22:40 79 94 08/04/19 22:39 69 98 08/04/19 22:34 63 98 08/04/19 22:31 60 143/88 H 08/04/19 22:29 63 99 08/04/19 22:24 64 97 08/04/19 22:20 69 94 08/04/19 22:19 65 95 08/04/19 22:16 63 144/89 H 08/04/19 22:14 60 99 08/04/19 22:09 61 98 08/04/19 22:04 65 97 08/04/19 22:01 64 150/89 H 08/04/19 21:59 70 99 08/04/19 21:54 69 97 08/04/19 21:49 64 99 08/04/19 21:46 61 138/82 08/04/19 21:44 64 98 08/04/19 21:39 78 98 08/04/19 21:34 66 98 08/04/19 21:31 61 121/70 08/04/19 21:29 64 99 08/04/19 21:24 62 98 08/04/19 21:19 61 97 08/04/19 21:16 63 130/75 08/04/19 21:14 66 98 08/04/19 21:09 60 98 08/04/19 21:04 63 99 08/04/19 21:02 36.7 C 63 18 132/73 08/04/19 20:59 62 99 05 20:54 66 98 08/04/19 20:49 61 98 08/04/19 20:46 67 130/75 08/04/19 20:44 70 98 08/04/19 20:39 64 98 05 20:34 65 97 05 20:31 61 127/70 05 20:29 66 99 08/04/19 20:24 63 100 05 20:19 66 99 05 20:17 65 125/78 08/04/19 20:14 66 99 05 20:09 75 98 08/04/19 20:04 73 99 08/04/19 20:01 66 135/87 08/04/19 19:59 70 100 08/04/19 19:54 70 99 08/04/19 19:49 80 99 08/04/19 19:46 67 133/88 08/04/19 19:44 74 98 08/04/19 19:39 65 98 08/04/19 19:34 75 98 08/04/19 19:32 66 89 L 08/04/19 19:31 65 146/87 H 08/04/19 19:29 69 99 08/04/19 19:24 67 98 08/04/19 19:19 70 98 08/04/19 19:17 63 142/90 H
--- NOTE | 2019-08-05 07:31 | Anesthesia Procedure Note ---
Date of Service August 05, 2019 Anesthesia Post Epidural Note Vital Signs Vital Signs: Temp Pulse Resp BP Pulse Ox 36.7 C 76 16 135/87 97 08/05/19 03:00 08/05/19 03:00 08/05/19 03:00 08/05/19 03:00 08/05/19 03:00 Pain Intensity Abdomen: Pain Intensity: 1 Notes Mental Status: alert / awake / arousable Nausea / Vomiting: adequately controlled Pain: adequately controlled Airway Patency, RR, SpO2: stable & adequate BP & HR: stable & adequate Hydration State: stable & adequate Neuraxial Anesthesia: was administered and sensory block is resolving Anesthetic Complications: no major complications apparent Epidural: Removed without complications and With tip intact
[2019-08-05] MEDS: LABETALOL HCL 100 MG TAB PO SCH ×2 (08:35→21:00)
[2019-08-05] MEDS: PRENATAL VITAMIN 1 TAB PO SCH (08:35)
[2019-08-05] MEDS: DOCUSATE SODIUM 100 MG CAP PO SCH ×2 (08:35→20:59)
[2019-08-05] MEDS: LEVOTHYROXINE SODIUM 137 MCG TABLET PO SCH (10:53)
[2019-08-06 06:27] LABS: Hematocrit (blood only) 32.4 % (37-47); Hemoglobin 10.8 g/dL (12.0-16.0)
[2019-08-06] MEDS: LEVOTHYROXINE SODIUM 137 MCG TABLET PO SCH (06:48)
--- NOTE | 2019-08-06 06:57 | Obstetrical Progress Note ---
Date of Service August 06, 2019 Assessment & Plan (1) Vaginal delivery: Jnen is a 39 yo on PPD 2 after at 38w - GBS -, Blood Type O+, Rubella immune - treated with penicillin at delivery - Hemoglobin reviewed: 10.8, down from 11.5 on admission - patient is doing clinically well Continue routine post- care. - After discharge will have [address] Liu. (2) Chronic hypertension affecting : - continue labetolol 100mg bid - blood pressures have been labile with systolics in the 150s and diastolics in the 80-90s; most recent reading 128/81 - no signs or symptoms of pre-eclampsia - she should follow up in the office within 1 week for BP check after discharge Admission and Anticipated Discharge Date Admission Date: August 04, 2019 Supervising Physician Co-Signing Physician Notes Resident Physician Supervision Note: I interviewed and examined the patient. Discussed with Dr. Albrecht and agree with findings and plan as documented in the note. Any exceptions or clarifications are listed here: [None] Documented By: Eileen Bear MD, FACOG Subjective Ambulation: ambulating normally Voiding: no voiding problems Passing Gas:: No Diet Tolerance:: regular diet Lochia:: Small Feeding Type:: breast feeding Review of Systems Constitutional: no fever, no chills and no sweats Eyes: no worsening vision Respiratory: no cough and no dyspnea Cardiovascular: no chest pain, no palpitations, no edema and no calf pain Gastrointestinal: no nausea and no vomiting Genitourinary: no dysuria and no urinary frequency Neurologic: no headache(s) Physical Exam Constitutional: WD/WN, vitals as above no acute distress Respiratory: normal respiratory effort, lungs clear to auscultation does not use accessory muscles Auscultation: no crackles, no rales, no rhonchi, no wheezes and no pleural rub Cardiovascular: Rate/Rhythm: regular rate and regular rhythm Heart Sounds: normal S1 and normal S2; no gallop, no murmur and no cardiac rub Extremities: no calf tenderness and no pedal edema Gastrointestinal (Abdomen): Inspection/Auscultation: normal bowel sounds; abdomen not distended Percussion/Palpation: abdomen soft Genitourinary: Uterus: fundus firm, palpable 2 cm below the umbilicus Results & Data ([place]) Vital Signs (Past 12 Hours) Vital Signs Temp Pulse Resp BP 08/05/19 23:37 36.7 C 86 18 128/81 08/05/19 20:50 36.4 C L 78 18 133/85 Resident Activity Tracking Resident Involvement: Resident Care Provided Care Provided: OB Delivery
[2019-08-06] MEDS: DOCUSATE SODIUM 100 MG CAP PO SCH (07:54)
[2019-08-06] MEDS: LABETALOL HCL 100 MG TAB PO SCH (07:54)
[2019-08-06] MEDS: PRENATAL VITAMIN 1 TAB PO SCH (07:55)
[2019-08-06] MEDS ORDERED: bisacodyL 5 MG TABEC PO SCH (20:00)
== END 2019-08-06 12:40 | disposition home or self-care (01) | DRG 807 ==
LOC: 4S1 10:22 → 4S2 08-05 02:59